=== PATIENT | male | born 1975 | race Caucasian/White ===

== ENCOUNTER 2024-03-13 14:55 | Emergency (ER) | payer OTHER, SELFPAY ==
[2024-03-13 15:11] VITALS: BP 152/85
[2024-03-13 15:13] LABS: Glucose - Point of Care 208 mg/dl (70-99)
[2024-03-13 15:51] LABS: % Basophils 0.7 % (0-2); % Eosinophils 1.3 % (0-6); % Immature Granulocytes 0.3 % (0-0.5); % Lymphocytes 13.8 % (20.5-51.1); % Monocytes 5.6 % (1.7-9.3); % Neutrophils 78.3 % (42.2-75.2); Absolute Basophils 0.1 10^3/uL (0-0.2); Absolute Eosinophils 0.1 10^3/uL (0-0.7); Absolute Monocytes 0.4 10^3/uL (0.1-0.6); Absolute Neutrophils 5.9 10^3/uL (1.4-6.5); Hematocrit 44.6 % (39.0-52.0); Hemoglobin 16.1 g/dL (13.0-18.0); Mean Corp Hgb Conc. 36.1 g/dL (33.0-37.0); Mean Corpuscular Hgb 30.7 pg (27.0-31.0); Mean Corpuscular Volume 85.1 fL (80.0-94.0); Mean Platelet Volume 10.1 fL (7.4-10.4); Nucleated Red Blood Cells % 0 % (-); Platelet Count 189 10^3/uL (130-400); Red Blood Cell Count 5.24 10^6/uL (4.70-6.10); Red Cell Dist. Width 12.4 % (11.5-14.5); White Blood Cell Count 7.5 10^3/uL (4.8-10.8)
[2024-03-13 16:01] LABS: ALT (SGPT) 28 U/L (0-50); AST (SGOT) 26 U/L (17-59); Albumin 4.4 g/dl (3.5-5.0); Alkaline Phosphatase 63 U/L (38-126); Blood Urea Nitrogen 13 mg/dl (9-20); Calcium 9.5 mg/dl (8.4-10.2); Carbon Dioxide 23 mmol/L (22-30); Chloride 104 mmol/L (98-107); Glucose 229 mg/dl (70-99); Potassium 3.9 mmol/L (3.5-5.1); Sodium 138 mmol/L (135-145); Total Bilirubin 0.7 mg/dl (0.2-1.3); Total Protein 6.9 g/dl (6.3-8.2); eGFR > 60.00
[2024-03-13 17:48] VITALS: BP 155/87
--- NOTE | 2024-03-13 17:48 | ED.GENMED ---
History of Present Illness
General
Chief Complaint: Blood Sugar Problem
Source: patient
Exam Limitations: none
Time Seen by Provider: 03/13/24 17:38
Travel History
Have you had any contact with someone who has COVID-19?: No
Do you have any symptoms of coronavirus? Fever > 100 degrees, chills, cough, shortness of breath, sore throat, loss of taste or smell, muscle aches, or headache?: No
History of Present Illness
History of Present Illness:
See MDM
Past History
Past History
ED Past Medical History: IDDM
ED Past Surgical History: None
Social History
Tobacco: Non-smoker
Alcohol: None
Drug: None
Personal:
Living: with family
Phy Exam
Physical Exam
Physical Exam:
See MDM
Course
Orders/Labs/Results
Orders:
Orders
03/13/24 15:27
CMP [Comprehensive Metabolic Panel] Urgent
Complete Blood Count/With Diff Urgent
03/13/24 17:47
Electrocardiogram (*1) Urgent
Reason for Study: Fatigue / Weakness
EKG- Treatment ONCE
Abnormal Lab Results
03/13/24 03/13/24
15:13 15:27
Absolute Lymphs (auto) 1.0 L 10^3/uL
(1.2-3.4)
Neutrophils % 78.3 H %
(42.2-75.2)
Lymphocytes % 13.8 L %
(20.5-51.1)
Glucose 229 H mg/dl
(70-99)
POC Glucose 208 H mg/dl
(70-99)
03/13/24 15:27
03/13/24 15:27
Vital Signs
Initial and Last Documented VS:
Initial Vital Signs
Temp Pulse Resp BP Pulse Ox
98.0 F 94 18 152/85 98
03/13/24 15:11 03/13/24 15:11 03/13/24 15:11 03/13/24 15:11 03/13/24 15:11
Last Documented Vital Signs
Temp Pulse Resp BP Pulse Ox
98.0 F 82 16 155/87 96
03/13/24 15:11 03/13/24 17:48 03/13/24 17:48 03/13/24 17:48 03/13/24 17:48
MDM/Problems Addressed
Differential Diagnosis Includes:
HPI and MDM Narrative:
49-year-old male presenting with resolved dizzy and weakness. Patient had an episode a few hours ago. He had the sensation that his blood sugar was low. However, he checked his blood sugar and it was in the 70s. Patient started treating his low
blood sugar assuming that was the cause of his symptoms. He was able to get his blood sugar up in the 200s but still felt 'off'. He decided come the hospital. While here in the emergency department, symptoms appear to have resolved on their own.
We do long discussion about the possibilities of his weak and dizziness. We discussed possible dehydration versus possible low blood sugar versus possible arrhythmia such as A-fib versus possible vertigo. Blood work performed showing no acute
abnormalities other than the expected hyperglycemia. We discussed talking to his primary care about obtaining a Holter monitor
Physical exam
General: Well appearing and non-toxic
HEENT: protecting airway
Neck: appears supple
CV: No evidence of cyanosis. Regular rate and rhythm
Resp: No accessory muscle use
Abd: Non-distended
Extremities: No deformities
Neuro: alert
Psych: Normal affect
Skin: Intact
Problems Addressed including Acute and Chronic Conditions affecting care:
1. Resolved near syncope
Acuity: acute
Prognosis: stable
Details: Discussed the possibility of cardiac arrhythmia. Patient currently in sinus rhythm. Discussed talking to his PCP about obtaining a Holter monitor
2. [ ]
Acuity: acute
Prognosis: stable
Details:
3. [ ]
Acuity: acute
Prognosis: stable
Details:
4. [ ]
Acuity: acute
Prognosis: stable
Details:
5. [ ]
Acuity:
Prognosis:
Details:
Updates
Differential Diagnosis (but not limited to): Paroxysmal A-fib, dehydration, hypoglycemia, vertigo
Testing considered: Troponin but symptoms resolved
Drug therapy (if applicable): OTC meds, please see d/c instruction regarding Rx drugs
Amount and/or Complexity of Data Reviewed
Clinical info obtained from: Patient
External data reviewed: N/A
Labs I independently reviewed (but not limited to): Hyperglycemia
Radiology: N/A
Pulse Ox: not hypoxic
EKG independently reviewed: N/A
Associate Art Director: N/A
Critical Care: N/A
Risk of Complication:
Social Determinants of health: Good social support
Discussed with other providers: N/A
Escalation of Care includes Admit/Obs: After being observed in the Emergency Department, pt stable for discharge.
Occasional wrong word or 'sound a like' substitutions may have occurred due to the inherent limitations of voice recognition software. Read the chart carefully and recognize, using context, where substitutions have occurred.
*Critical Care Note
Total Time (30-74mins, 75-104mins- exclusive of procedures): Not Applicable
ED Attending Note
-
Portions of this chart may have been created with voice recognition software.� Occasional wrong word or��sound alike� substitutions may have occurred due to the inherent limitations of voice recognition software.
Discharge Plan
Departure
Patient Disposition: Home (Routine Discharge)
Date of Disposition: 03/13/24
Time of Disposition: 17:54
Patient with high blood pressure during this ER visit?: Yes
Discharge Problem:
Near syncope
Instructions: BLOOD PRESSURE
Prescriptions:
No Action
trazodone 100 MG tablet
100 mg HS
Activity Restrictions/Additional Instructions:
Please return for any worsening symptoms.
You may return at any time if you have further concerns.
Please follow up with your doctor at the first available appointment, preferably this week. It is uncertain what caused your symptoms. Please talk to your doctor about possibly obtaining a Holter monitor to rule out an arrhythmia as the underlying
cause.
Thank you for choosing [facility].
Interventions
Interventions:
*Risk Screen - Suicide Last Done: 03/13/24 17:49
*General Assessment Last Done: 03/13/24 17:48
*Neglect/Abuse Screening Last Done: 03/13/24 17:49
*ED COVID-19 Vaccine History Last Done: 03/13/24 15:11
ED- Neurological Assessment Last Done: 03/13/24 17:49
Discharge Date and Time
Print Language: [id number]
== END 2024-03-13 18:00 | disposition home or self-care (01) ==
LOC: EMR 14:55
PROVIDERS: EMERGENCY PHYSICIAN Student in an Organized Health Care Education/Training Program; FAMILY PHYSICIAN Nurse Practitioner
DX: R55 Syncope and collapse (principal); E11.9 Type 2 diabetes mellitus without complications
CPT/HCPCS: 99283; 80053; 82962; 85025; 93005